=== PATIENT | male | born 1975 | race African-American/Black ===

== ENCOUNTER → 2016-11-09 | Outpatient (CLI) | payer BC ==
[~2016-11-09] VITALS: Ht 167.6 cm; Wt 66.4 kg
[~2016-11-09] MED LIST: FLEXERIL PO; HYDROCODON-ACE1 EAC5 PO; MOBIC15 MG PO; OXYCODONE HCL30 MG PO
--- NOTE | ~2016-11-09 | HPC ---
[facility] [address] [place] [address] PAIN MANAGEMENT CONSULTATION Name: NELSYREMI Bright [id number] Admission: 11/09/16 Attend Phys: Vikas Mirza DO Discharge: Date of : 73 Report #: [id number] THIS REPORT FOR: //name// CC: Eloisa Mirza HISTORY OF PRESENT ILLNESS: The patient is a very pleasant 41-year-old gentleman, who I saw about a year ago back in December for recurrent lumbar radicular symptoms. He had single epidural injection with excellent improvement of symptoms. He was actually seen by one of my partner, Dr. Yaw Mattson in April of last year for cervical radicular symptoms, had a single cervical epidural injection again with excellent improvement of symptoms. He returns to pain clinic today noting pain has begun to recur in the low back, right leg. He denies specific antecedent trauma and/or overuse initiating with symptoms, but notes presently standing, lifting, and bending significantly exacerbates pain in the back, buttock, right posterior leg to the foot with paresthesia in the toe. PHYSICAL EXAMINATION: Shows a pleasant 41-year-old gentleman, BMI is about 24 kilograms per meter squared. Vital signs are stable as noted in the EMR. Rises from the chair using armrests, antalgic gait, favoring the right leg. Grossly positive straight leg raise at 30 degrees on the right, dorsiflexion, and plantarflexion diminished on the right. Patellar and Achilles reflexes are generally symmetric with modest decrease in the right Achilles reflex. ASSESSMENT: Symptomatic lumbar radiculopathy by clinical exam and history of right L5 radicular component. RECOMMENDATIONS: Epidural injection under fluoroscopy today at L5-S1, Aleve [id number] with meals, over the next 5-7 days, follow up as needed. PROCEDURE: Lumbar epidural steroid injection under fluoroscopy. DESCRIPTION OF PROCEDURE: After both written and informed consent to include risk of spinal cord damage, increased pain, weakness and dural puncture, the patient was taken to the fluoroscopy suite, placed in the prone position. After sterile prep and drape, a skin wheal with lidocaine was raised. A 22-gauge epidural Tuohy needle was inserted in the midline at L5-S1 with good loss to resistance. Negative aspiration for cerebrospinal fluid or blood was noted. Then 1 mL of Omnipaque under biplanar fluoroscopy showed good spread within the epidural space. This was followed with 80 mg of triamcinolone plus 1 mL of 1.5% preservative-free Xylocaine, 0.5 mL Xylocaine was then injected to flush the [address] [address] PAIN MANAGEMENT CONSULTATION Name: REMI WHITTINGTON [facility] [id number] Admission: 11/09/16 Attend Phys: Vikas Mirza DO Discharge: Date of : 73 Report #: [id number] needle; it was removed. The patient was monitored for an appropriate period of time and discharged in good and stable condition. By: [id number] Vikas Mirza DO /nt
[2016-11-09 08:45] VITALS: BP 119/78
== END | disposition home or self-care (01) ==
LOC: PAIN 08-10 06:42
DX: M54.16 Radiculopathy, lumbar region (principal); G89.29 Other chronic pain; Z98.890 Other specified postprocedural states